=== PATIENT | female | born 1970 | race Asian ===

== ENCOUNTER → 2019-09-08 | Outpatient (CLI) | payer OTHER ==
[2019-09-08 11:15] LABS: CHOLESTEROL/HDL RATIO 2.3
== END | disposition home or self-care (01) ==
LOC: LB 09:29
DX: R31.29 Other microscopic hematuria (principal); Z82.49 Family history of ischemic heart disease and other diseases of the circulatory system; Z13.220 Encounter for screening for lipoid disorders

== ENCOUNTER 2019-11-04 15:23 | Emergency (ER) | payer OTHER, SELFPAY ==
[~2019-11-04] VITALS: Ht 160 cm; Wt 58.5 kg
[2019-11-04 15:38] VITALS: Ht 160 cm; Wt 58.5 kg
[2019-11-04 16:25] LABS: microscopic required? YES; urine erythrocyte 1+ (NEGATIVE)
[2019-11-04 17:22] VITALS: BP 107/74
== END 2019-11-04 17:22 | disposition home or self-care (01) ==
LOC: ED 15:23
PROVIDERS: Emergency Medicine
DX: N30.90 Cystitis, unspecified without hematuria (principal); Z20.828 Contact with and (suspected) exposure to other viral communicable diseases; Z88.2 Allergy status to sulfonamides; Z88.1 Allergy status to other antibiotic agents
CPT/HCPCS: 87804; Q0092

== ENCOUNTER → 2020-03-11 | Outpatient (CLI) | payer OTHER | END | disposition home or self-care (01) | LOC: US 09:25 | PROVIDERS: ATTEND Internal Medicine | PROC: BT4JZZZ Ultrasonography of Kidneys and Bladder (ICD-10-PCS; principal; 2020-03-11) | DX: R10.9 Unspecified abdominal pain (principal) ==